=== PATIENT | female | born 1940 | race Caucasian/White ===

== ENCOUNTER 2017-06-30 10:58 | Day surgery (SDC) | payer MEDICARE ==
--- NOTE | 2017-06-22 15:56 | HP ---
PREOPERATIVE HISTORY AND PHYSICAL: DATE OF ADMISSION/SURGERY: 06/30/17 - [facility] DATE OF OFFICE VISIT/ENCOUNTER: 06/22/17 ATTENDING SURGEON: Dipti Avila MD * (DICTATED BY FREIDA MOORE) PROCEDURE: Right carpal tunnel release. JOY LOADER: Dr. Chung. CHIEF COMPLAINT: Numbness and tingling, right hand. HISTORY OF PRESENT ILLNESS: This is a 77-year-old female, who reports numbness and tingling in the median nerve distribution of her right hand. This has been ongoing since late October 2015. She thinks initially the symptom started when she was making a lot of [place] treats and using her hands a lot. She has symptoms during the day and also at night that awaken her. She has failed conservative treatment including bracing, cortisone injection, and physical therapy. She is interested in pursuing surgical intervention at this time in the form of a right carpal tunnel release. The patient has had two heart attacks in the past, one in 2013 and one in 2014, and is followed regularly by Dr. Chung. She saw Dr. Chung in April of 2017 and was stable cardiac mead and there have been no changes in her medical history or medications. Dr. Chung advises that the patient stayed on warfarin and aspirin perioperatively. PAST MEDICAL HISTORY: 1. Heart attack x2; February of 2014, December of 2014. 2. Hypertension. 3. High cholesterol. 4. History of breast cancer. PAST SURGICAL HISTORY: 1. Right mastectomy. 2. Hysterectomy. 3. Cardiac catheterization x4. CURRENT MEDICATIONS: 1. Amlodipine besylate 10 mg daily. 2. Aspirin 81 mg daily. 3. Atorvastatin calcium 40 mg daily. 4. Calcium citrate plus D3 250/200 mg units daily. 5. Colace 100 mg 3 tabs p.o. daily at night. 6. Lisinopril 40 mg daily. 7. Nitrostat 0.4 mg 1 tab sublingual p.r.n. every 5 minutes x3. 8. Senna 8.6 mg daily. 9. Toprol-XL 50 mg 1 tab q.a.m. and 1 tab q.p.m. 10. Warfarin sodium 10 mg 1 tab and Monday. 11. Warfarin sodium 7.5 mg 1 tab Monday, Monday, Monday, Monday, and Monday. ALLERGIES: BACTRIM, reaction unknown. FAMILY MEDICAL HISTORY: Heart disease. SOCIAL HISTORY: The patient is retired. She denies tobacco use and recreational drug use. She does not drink alcohol per Dr. Chung's advice. REVIEW OF SYSTEMS: General: Negative for fevers, chills, or night sweats. No known anesthesia problems. HEENT: Negative for headache, lightheadedness, or syncopal episodes. Integumentary: Negative for abrasions, lesions, or open wounds. Cardiothoracic: Positive for hypertension and history of heart attack. Negative for current chest pain, palpitations, or edema. Pulmonary: Negative for shortness of breath with exertion, chronic cough, or COPD. GI: Negative for nausea, vomiting, diarrhea, constipation, or GERD. : Negative for nocturia, urinary frequency, urgency, history of UTIs, or kidney problems. Musculoskeletal: Positive for current complaint. Negative for chronic or intermittent back pain or history of fractures. Neurologic: Negative for paresthesias, numbness, history of seizures, stroke, or epilepsy. Endocrine: Negative for diabetes or thyroid issues. Hematologic: Negative for easy bruising, anemia, excessive bleeding, or history of DVT. Infectious Disease: Negative for history of MRSA, hepatitis C, or HIV. PHYSICAL EXAMINATION GENERAL: Well-developed, well-nourished, 77-year-old female, in no acute distress. VITAL SIGNS: Height 5 feet 6 inches, weight 173 pounds. Pulse rate 68, blood pressure 140/90. HEENT: Normocephalic, atraumatic. Pupils are equal, round, and reactive to light and accommodation. Extraocular movements are intact. NECK: Supple. No palpable lymph nodes. Throat is clear. PULMONARY: Lungs are clear to auscultation bilaterally. No wheezes, rales, or rhonchi. CARDIOVASCULAR: Regular rate and rhythm. S1 and S2. No murmurs, rubs, or gallops. No edema. ABDOMEN: Positive bowel sounds, soft, nontender. NEUROLOGICAL: Alert and oriented x3. Cranial nerves II through XII are intact. MUSCULOSKELETAL: On exam of her right hand, there is visible thenar wasting noted and weakness in the right thumb with abduction. She has full motion in the thumb and the fingers and reports that sensation is intact to light touch throughout the entire hand. She has a negative Tinel's at the wrist and at the elbow and negative Phalen's test. IMPRESSION: Right carpal tunnel syndrome. PLAN: The patient is scheduled to undergo a right carpal tunnel release with Dr. Avila on 06/30/17. She will return to the office 10 to 14 days postop for followup and suture removal. She will plan on using [id number] Tylenol for postoperative pain management. She will remain on her warfarin and aspirin perioperatively per Dr. Chung. FREIDA MOORE [id number]/[facility] #: [id number] NIKUNJ
[~2017-06-30 10:58] MED LIST: Buffered Lidocaine 0.9% SYRIN* 5 ML/SYR SYRINGE INTRADERM ONE; Famotidine IV* 10 MG/ML 2 ML (20 mg) IV ONE; HYDROcodone/ACETAMIN 5-325 MG* 1 TAB PO PRN; Metoclopramide TAB* 10 MG PO ONE; Ondansetron INJ* 2 MG/ML VIAL IV PRN; fentaNYL* 50 MCG/ML 2 ML VIAL (100 MCG VIAL) IV PRN
[2017-06-30] MEDS ORDERED: Metoclopramide TAB* 10 MG ONE (11:00)
[2017-06-30] MEDS ORDERED: Famotidine IV* 10 MG/ML 2 ML (20 mg) ONE (11:01)
[2017-06-30] MEDS ORDERED: Lidocaine 2% PF * 5 ML VIAL ONE (11:36)
[2017-06-30] MEDS ORDERED: Propofol* 10 MG/ML 20 ML BTL IV PUSH ONE (11:36)
[2017-06-30] MEDS ORDERED: Ondansetron INJ* 2 MG/ML VIAL ONE (11:36)
[2017-06-30] MEDS ORDERED: fentaNYL* 50 MCG/ML 2 ML VIAL (100 MCG VIAL) ONE (11:36)
[2017-06-30] MEDS ORDERED: Ketorolac INJ* 30 MG/ML 1 ML VIAL ONE (11:36)
[2017-06-30] MEDS ORDERED: Midazolam* 1 MG/ML 5 ML VIAL (5 MG) ONE (11:36)
[2017-06-30] MEDS ORDERED: Dexamethasone IV* 4 MG/ML 1 ML (4 MG) ONE (11:36)
[2017-06-30] MEDS ORDERED: Lidocaine 1% INJ* 10 MG/ML 30 ML SDV ONE (13:07)
[2017-06-30 13:43] VITALS: BP 154/83
--- NOTE | 2017-07-01 03:02 | OP ---
DATE OF OPERATION: 06/30/17 [facility] DATE OF : 40 SURGEON: Dipti Avila MD GEOPHYSICAL PROSPECTOR: FREIDA Mitchell. ANESTHESIOLOGIST: Marc Rhodes MD ANESTHESIA: Local MAC. PRE-OP DIAGNOSIS: Right carpal tunnel syndrome. POST-OP DIAGNOSIS: Right carpal tunnel syndrome. OPERATIVE PROCEDURE: Right carpal tunnel release. ESTIMATED BLOOD LOSS: Zero. TOURNIQUET TIME: About 5 minutes. INDICATIONS FOR SURGERY: Destiny is a 77-year-old woman with numbness and tingling in the median nerve distribution of her right hand. She presents for right carpal tunnel release. DESCRIPTION OF PROCEDURE: The patient was brought to the operating room, was given a local anesthetic with 10 cc of 1% plain lidocaine. Skin of her right hand and forearm was prepped and draped in usual sterile fashion. The hand and forearm were exsanguinated and the tourniquet elevated to 250 mmHg. A longitudinal incision was made in the palm in line with the ring finger. We dissected through the subcutaneous tissue sharply with a knife and then more proximally with the scissors. The nerve was carefully dissected free from surrounding tissue. There was an area of marked compression at the mid portion of the ligament. Because the patient was on Coumadin, the Bovie was used to acquire hemostasis. The wound was irrigated with saline and then the skin edges reapproximated with 4-0 nylon suture. The wound was dressed with Xeroform , 4x4, Webril, and David wrap. The patient tolerated the procedure well, was brought to the recovery room in good condition. [id number]/[facility] #: [id number] [facility]
== END 2017-06-30 13:56 | disposition home or self-care (01) ==
LOC: OREAST 10:58
PROVIDERS: ATTEND Orthopaedic Surgery
DX: G56.01 Carpal tunnel syndrome, right upper limb (principal); I25.10 Atherosclerotic heart disease of native coronary artery without angina pectoris; I25.2 Old myocardial infarction; I10 Essential (primary) hypertension; E78.00 Pure hypercholesterolemia, unspecified; Z85.3 Personal history of malignant neoplasm of breast; Z79.01 Long term (current) use of anticoagulants
CPT/HCPCS: A9270-GY; J1100; J1885; J2001; J2250; J2405; J2704; J3010

== ENCOUNTER 2017-06-30 18:15 | Emergency (ER) | payer MEDICARE ==
--- NOTE | 2017-06-30 18:35 | ED ---
Upper Extremity Pain - HPI Summary HPI Summary: 77F presents with bleeding from her carpel tunnel incision site since 3pm today. She had surgery with dr rosales today and was discharged at 2pm. She states she keeps applying bandaids on top and it keeps bleeding through. She called the ortho office and they told her to come here. She states her pain is minimal. She is on coumadin and inr is 3.2 last checked a week ago. Her cardiology dr schmidt will not let go off coumadin. - History of Current Complaint Chief Complaint: EDExtremityUpper Stated Complaint: POST OP BLEEDING Time Seen by Provider: 06/30/17 18:23 - Allergies/Home Medications Allergies/Adverse Reactions: Allergies Allergy/AdvReac Type Severity Reaction Status Date / Time Sulfamethoxazole Allergy Unknown GI Upset Verified 06/30/17 18:16 w/Trimethoprim [From Bactrim] Home Medications: Home Medications Calcium Citrate-Vitamin D [Calcium Citrate+D3 Petite 200-250 mg-Unit] 1 tab PO DAILY 06/30/17 [History Confirmed 06/30/17] Lisinopril [Lisinopril 40 MG-] 40 mg PO DAILY 06/30/17 [History Confirmed ] Nitroglycerin TAB 0.4 MG* 0.4 mg SL Q5M PRN 06/30/17 [History Confirmed 06/30/17 ] Warfarin TAB(*) [Coumadin TAB(*)] 7.5 mg PO MOTUWEFRSA 06/30/17 [History Confirmed 06/30/17] Warfarin TAB(*) [Coumadin TAB(*)] 10 mg PO SUTH 06/30/17 [History Confirmed 03/13] amLODIPine TAB* [Norvasc 5 mg TAB*] 10 mg PO DAILY 06/30/17 [History Confirmed 06/30/17] PMH/Surg Hx/FS Hx/Imm Hx Endocrine/Hematology History: Reports: Hx Anticoagulant Therapy Denies: Hx Blood Disorders, Hx Blood Transfusions, Hx Bone Marrow Disease, Hx Diabetes, Hx Systemic Lupus Erythematosus, Hx Sickle Cell Disease, Hx Thyroid Disease, Hx Anemia, Hx Unexplained Bleeding, Other Endocrine/ Hematological Disorders Cardiovascular History: Reports: Hx Aneurysm, Hx Angina, Hx Coronary Artery Disease, Hx Embolism - possible coronary clot 01/01/15, Hx Hypercholesterolemia, Hx Hypertension - ON DAILY MEDS, Other Cardiovascular Problems/Disorders - AORTIC TEAR Denies: Hx Angioplasty, Hx Auto Implanted Cardiovert Defib, Hx Cardiac Arrest , Hx Cardiomegaly, Hx Congenital Heart Disease, Hx Congestive Heart Failure, Hx Deep Vein Thrombosis, Hx Hypotension, Hx Pacemaker/ICD, Hx Peripheral Vascular Disease, Hx Rheumatic Fever, Hx Syncope, Hx Valvular Heart Disease GI History: Denies: Hx Cirrhosis, Hx Crohn's Disease, Hx Diverticulosis, Hx Gall Bladder Disease, Hx Gastroesophageal Reflux Disease, Hx Gastrointestinal Bleed, Hx Hiatal Hernia, Hx Irritable Bowel, Hx Jaundice, Hx Obstructive Bowel, Hx Ileostomy, Hx Pyloric Stenosis, Hx Ulcer Musculoskeletal History: Reports: Hx Arthritis - STATES MILD, USES OTC MEDS OCCASSIONALLY, Hx Bursitis - left hip and right hip Denies: Hx Back Problems, Hx Congenital Bone Abnormalities, Hx Fibromyalgia, Hx Gout, Hx Orthopedic Injury, Hx Osteoporosis, Hx Scoliosis, Hx Tendonitis, Other Musculoskeletal History Sensory History: Reports: Hx Cataracts, Hx Contacts or Glasses - reading Denies: Hx Hearing Aid Opthamlomology History: Reports: Hx Cataracts, Hx Contacts or Glasses - reading - Cancer History Cancer Type, Location and Year: Right breast CA Hx Chemotherapy: No Hx Radiation Therapy: No Hx Palliative Cancer Treatment: No - Surgical History Surgery Procedure, Year, and Place: 1979 HYSTERECTOMY [facility] [place]. 1996 RIGHT BREAST CANCER, MASTECTOMY [facility] [place]. 02/2014 Cardiac Catherization-[facility] [place] x2. 12/01/14 Cardiac Caterization-[facility] [place] x2 Hx Anesthesia Reactions: No - Immunization History Date of Tetanus Vaccine: unknown Infectious Disease History: Denies: Hx Clostridium Difficile, Hx Hepatitis, Hx Human Immunodeficiency Virus (HIV), Hx of Known/Suspected MRSA, Hx Shingles, Hx Tuberculosis, Hx Known/ Suspected VRE, Hx Known/Suspected VRSA, History Other Infectious Disease, Traveled Outside the [place] in Last 30 Days - Social History Alcohol Use: None Alcohol Amount: NONE IN 4M Substance Use Type: Reports: None Smoking Status (MU): Never Smoked Tobacco Have You Smoked in the Last Year: No Review of Systems Negative: Fever Negative: Chest Pain Negative: Shortness Of Breath Positive: Other - bleeding from right wrist All Other Systems Reviewed And Are Negative: Yes Physical Exam Triage Information Reviewed: Yes Vital Signs On Initial Exam: Initial Vitals Temp Pulse Resp BP Pulse Ox 98.6 F 88 18 153/85 95 06/30/17 18:17 06/30/17 18:17 06/30/17 18:17 06/30/17 18:17 06/30/17 18:17 Vital Signs Reviewed: Yes Appearance: Positive: Well-Appearing Skin: Positive: Warm, Dry, Other - 5cm incision on right wrist that is closed with sutures, 2 areas are oozing one near where suture inserted and one in between two sutures. Head/Face: Positive: Normal Head/Face Inspection Eyes: Positive: Normal, EOMI, BEAN, Conjunctiva Clear ENT: Positive: Normal ENT inspection, Pharynx normal, TMs normal Respiratory/Lung Sounds: Positive: Clear to Auscultation, Breath Sounds Present Cardiovascular: Positive: Normal, RRR Procedures - Laceration/Wound Repair 1 Location: Other - right wrist Description: Stellate Length, Depth and Shape: 4cm laceration with sutures that is oozing Closure: Skin Adhesive Sterile Dressing Applied?: No - pressure dressing Diagnostics - Vital Signs Vital Signs Temp Pulse Resp BP Pulse Ox 06/30/17 18:17 98.6 F 88 18 153/85 95 - Laboratory Lab Statement: Any lab studies that have been ordered have been reviewed, and results considered in the medical decision making process. Course/Dx - Course Course Of Treatment: 77F presents with bleeding from her carpel tunnel incision site since 3pm today. She had surgery with dr rosales today and was discharged at 2pm. She states she keeps applying bandaids on top and it keeps bleeding through. She called the ortho office and they told her to come here. She states her pain is minimal. She is on coumadin and inr is 3.2 last checked a week ago. Her cardiology dr schmidt will not let go off coumadin. on exam has two area that appear to be oozing. discussed with dr sauceda said can place glue and place a pressure dressing which did. had patient elevate arm and checked in 30 mins and it did not appear to go through pressure dressing. d/c home and told if bleeding returns to return otherwise to give office a call on monday - Diagnoses Differential Diagnosis/HQI/PQRI: Positive: Other - bleeding post op, cellulitis Provider Diagnoses: Postoperative bleeding from incision - Physician Notifications Discussed Care of Patient With: ajay sauceda Time Discussed With Above Provider: 05:00 - apply glue and pressure dressing Discharge - Discharge Plan Condition: Good Disposition: HOME Referrals: Landen Jackson MD [Primary Care Provider] - Additional Instructions: Keep elevated Place ice on area Call ortho office on Monday Keep pressure dressing on area Return to ED if bleeds through pressure dressing
[2017-06-30 19:56] VITALS: BP 141/78
== END 2017-06-30 19:51 | disposition home or self-care (01) ==
LOC: ED 18:15
DX: L76.22 Postprocedural hemorrhage of skin and subcutaneous tissue following other procedure (principal); G56.00 Carpal tunnel syndrome, unspecified upper limb; Z79.01 Long term (current) use of anticoagulants; Z86.79 Personal history of other diseases of the circulatory system
CPT/HCPCS: 99281

== ENCOUNTER 2020-09-17 04:19 | Inpatient (IN) ==
[2020-09-17 04:51] LABS: ABS Eosinophils 0.2 10^3/ul (0-0.6); ABS Lymphocytes 0.9 10^3/ul (1.0-4.8); ABS Monocytes 0.5 10^3/ul (0-0.8); ABS Neutrophils 3.9 10^3/ul (1.5-7.7); Eosinophil % 3.7 %; Hematocrit 44 % (35-47); Hemoglobin 14.8 g/dL (12.0-16.0); Lymphocyte % 16.6 %; Mean Corpuscular HGB Conc 34 g/dL (31-36); Mean Corpuscular Hemoglobin 30 pg (27-31); Mean Corpuscular Volume 90 fL (80-97); Mean Platelet Volume 7.2 fL (7.4-10.4); Platelet Count 234 10^3/uL (150-450); Red Blood Count 4.88 10^6 /uL (3.70-4.87); Red Cell Distribution Width 16 % (10-15); White Blood Count 5.5 10^3/uL (3.5-10.8)
[2020-09-17 05:02] LABS: Albumin 4.2 g/dL (3.2-5.2); Albumin/Globulin Ratio 1.6 (1-3); BUN/Creatinine Ratio 22.4 (8-20); C Reactive Protein 6.37 mg/L (<8.01); Calcium 9.9 mg/dL (8.6-10.3); EGFR African American 77.9 (>60); EGFR Non-African American 64.4 (>60); Globulin 2.7 g/dL (2-4); Potassium 4.3 mmol/L (3.5-5.0); Total Bilirubin 0.6 mg/dL (0.2-1.0); Total Protein 6.9 g/dL (6.4-8.9)
[2020-09-17 05:05] LABS: INR 2.99 (0.82-1.09)
[2020-09-17] MEDS ORDERED: HYDROcodone/ACETAMIN 5/325 mg TAB PO PRN (06:23)
[2020-09-17] MEDS ORDERED: Gadoteridol (CONTRAST) 279.3 MG/ML 10 ML IV ONE (10:14)
[2020-09-17] MEDS ORDERED: Iohexol 300 (CONTRAST) 10 ML SDV IV ONE (10:34)
[2020-09-17] MEDS ORDERED: Lidocaine PATCH 5% PATCH ONE ×3 (11:12→21:56)
[2020-09-17] MEDS ORDERED: HYDROcodone/ACETAMIN 5/325 mg TAB ONE (11:13)
[2020-09-17] MEDS: Lidocaine PATCH 5% PATCH TRANSDERM SCH (11:15)
[2020-09-17 12:26] LABS: Urine Appearance Cloudy; Urine Bilirubin Negative (Negative); Urine Blood Negative (Negative); Urine Color Yellow; Urine Glucose Negative (Negative); Urine Ketones Negative (Negative); Urine Nitrite Negative (Negative); Urine Protein Negative (Negative); Urine Specific Gravity 1.021 (1.010-1.030); Urine Urobilinogen Negative (Negative)
[2020-09-17 12:30] LABS: Urine Bacteria Absent (Absent); Urine Red Blood Cell Trace(0-2/hpf) (Absent); Urine Squamous Epithelial Cell Present (Absent); Urine White Blood Cell Trace(0-5/hpf) (Absent)
[2020-09-17] MEDS ORDERED: Aspirin EC 81 mg TAB.EC (enteric coated) ONE (14:09)
[2020-09-17] MEDS: CALCIUM CITRATE VITAMIN D3 PO SCH (14:14)
[2020-09-17] MEDS: Aspirin EC 81 mg TAB.EC (enteric coated) PO SCH (14:16)
[2020-09-17] MEDS: Warfarin DAILY REMINDER **NOTE FOLLOW UP SCH (17:20)
[2020-09-17] MEDS ORDERED: Senna TAB 8.6 mg TAB ONE (20:40)
[2020-09-17] MEDS: Senna TAB 8.6 mg TAB PO SCH (20:50)
[2020-09-17] MEDS: Lidocaine Patch REMOVE PATCH PATCH OFF SCH (20:51)
[2020-09-17] MEDS ORDERED: Lidocaine PATCH 5% PATCH TRANSDERM ONE (20:52)
[2020-09-18] MEDS ORDERED: Morphine 2 MG/ML SYRINGE IV ONE (00:59)
[2020-09-18] MEDS ORDERED: Morphine 2 MG/ML SYRINGE ONE ×2 (01:08→11:54)
[2020-09-18 06:38] LABS: ABS Eosinophils 0.2 10^3/ul (0-0.6); ABS Lymphocytes 0.8 10^3/ul (1.0-4.8); ABS Monocytes 0.5 10^3/ul (0-0.8); ABS Neutrophils 4.1 10^3/ul (1.5-7.7); Eosinophil % 3.5 %; Hematocrit 41 % (35-47); Hemoglobin 13.6 g/dL (12.0-16.0); Lymphocyte % 14.8 %; Mean Corpuscular HGB Conc 33 g/dL (31-36); Mean Corpuscular Hemoglobin 30 pg (27-31); Mean Corpuscular Volume 91 fL (80-97); Mean Platelet Volume 7.3 fL (7.4-10.4); Platelet Count 218 10^3/uL (150-450); Red Blood Count 4.52 10^6 /uL (3.70-4.87); Red Cell Distribution Width 15 % (10-15); White Blood Count 5.7 10^3/uL (3.5-10.8)
[2020-09-18 06:48] LABS: INR 2.65 (0.82-1.09)
[2020-09-18 06:54] LABS: BUN/Creatinine Ratio 22.4 (8-20); Calcium 9.2 mg/dL (8.6-10.3); EGFR African American 102.5 (>60); EGFR Non-African American 84.7 (>60); Potassium 4.1 mmol/L (3.5-5.0)
[2020-09-18] MEDS ORDERED: Iodixanol (CONTRAST) 320 MG/ML 100 ML SDV IV ONE (09:04)
[2020-09-18] MEDS: CALCIUM CITRATE VITAMIN D3 PO SCH (09:58)
[2020-09-18] MEDS ORDERED: Aspirin EC 81 mg TAB.EC (enteric coated) ONE (10:42)
[2020-09-18] MEDS ORDERED: Lidocaine PATCH 5% PATCH ONE (10:43)
[2020-09-18] MEDS: Lidocaine PATCH 5% PATCH TRANSDERM SCH (10:49)
[2020-09-18] MEDS: Aspirin EC 81 mg TAB.EC (enteric coated) PO SCH (10:52)
[2020-09-18] MEDS: Morphine 2 MG/ML SYRINGE IV PRN (11:55)
[2020-09-18] MEDS ORDERED: Gadoteridol (CONTRAST) 279.3 MG/ML 10 ML IV ONE (15:47)
[2020-09-18] MEDS: Warfarin DAILY REMINDER **NOTE FOLLOW UP SCH (16:58)
[2020-09-18] MEDS: Lidocaine Patch REMOVE PATCH PATCH OFF SCH ×3 (19:19→21:22)
[2020-09-18] MEDS: Polyethylene Glycol 3350 17 GM PACKET PO PRN (21:19)
[2020-09-18] MEDS: Senna TAB 8.6 mg TAB PO SCH (21:21)
[2020-09-19] MEDS: Morphine 2 MG/ML SYRINGE IV PRN (02:39)
[2020-09-19] MEDS: Lidocaine PATCH 5% PATCH TRANSDERM SCH (10:17)
[2020-09-19] MEDS: Aspirin EC 81 mg TAB.EC (enteric coated) PO SCH (10:17)
[2020-09-19] MEDS: CALCIUM CITRATE VITAMIN D3 PO SCH (10:44)
[2020-09-19] MEDS: Lidocaine Patch REMOVE PATCH PATCH OFF SCH ×2 (12:31→20:53)
[2020-09-19] MEDS: Dexamethasone IV 4 MG/ML VIAL 1 ml VIAL IV SLOW PU SCH ×2 (12:51→20:56)
[2020-09-19] MEDS: Warfarin DAILY REMINDER **NOTE FOLLOW UP SCH (17:13)
[2020-09-19] MEDS: Senna TAB 8.6 mg TAB PO SCH (20:51)
[2020-09-20] MEDS: Calcium/Vitamin D TAB 250/125 TAB PO SCH (08:08)
[2020-09-20] MEDS: Aspirin EC 81 mg TAB.EC (enteric coated) PO SCH (08:10)
[2020-09-20] MEDS: Dexamethasone IV 4 MG/ML VIAL 1 ml VIAL IV SLOW PU SCH ×2 (08:10→21:51)
[2020-09-20] MEDS: Lidocaine PATCH 5% PATCH TRANSDERM SCH (08:11)
[2020-09-20] MEDS: Lidocaine Patch REMOVE PATCH PATCH OFF SCH ×2 (09:56→23:12)
[2020-09-20] MEDS: Warfarin DAILY REMINDER **NOTE FOLLOW UP SCH (16:08)
[2020-09-20] MEDS: Senna TAB 8.6 mg TAB PO SCH (21:50)
[2020-09-21 01:46] LABS: Urine Appearance Clear; Urine Bilirubin Negative (Negative); Urine Blood 2+ (Negative); Urine Color Yellow; Urine Glucose Negative (Negative); Urine Ketones Negative (Negative); Urine Nitrite Negative (Negative); Urine Protein Negative (Negative); Urine Specific Gravity 1.017 (1.010-1.030); Urine Urobilinogen Negative (Negative)
[2020-09-21 01:51] LABS: Urine Bacteria Absent (Absent); Urine Red Blood Cell 3+(>10/hpf) (Absent); Urine Squamous Epithelial Cell Present (Absent); Urine White Blood Cell Trace(0-5/hpf) (Absent)
[2020-09-21 06:51] LABS: INR 1.7 (0.82-1.09)
[2020-09-21] MEDS: Dexamethasone IV 4 MG/ML VIAL 1 ml VIAL IV SLOW PU SCH ×2 (08:22→20:50)
[2020-09-21] MEDS: Calcium/Vitamin D TAB 250/125 TAB PO SCH (08:22)
[2020-09-21] MEDS: Lidocaine PATCH 5% PATCH TRANSDERM SCH (08:22)
[2020-09-21] MEDS: Aspirin EC 81 mg TAB.EC (enteric coated) PO SCH (08:24)
[2020-09-21] MEDS: Lidocaine Patch REMOVE PATCH PATCH OFF SCH (08:46)
[2020-09-21] MEDS: Polyethylene Glycol 3350 17 GM PACKET PO PRN (11:40)
[2020-09-21] MEDS: Warfarin DAILY REMINDER **NOTE FOLLOW UP SCH (17:07)
[2020-09-21] MEDS: Senna TAB 8.6 mg TAB PO SCH (20:50)
[2020-09-21 21:59] LABS: Urine Kappa/Lambda Light Chain >1.29
[2020-09-21 22:41] LABS: Immunoglobulin A 242 mg/dL (61 - 356); Immunoglobulin G 740 mg/dL (767 - 1590); Immunoglobulin M 33 mg/dL (37 - 286)
[2020-09-22 06:39] LABS: INR 1.2 (0.82-1.09)
[2020-09-22] MEDS: Lidocaine PATCH 5% PATCH TRANSDERM SCH (08:50)
[2020-09-22] MEDS: Lidocaine Patch REMOVE PATCH PATCH OFF SCH ×3 (08:50→22:23)
[2020-09-22] MEDS: Dexamethasone IV 4 MG/ML VIAL 1 ml VIAL IV SLOW PU SCH (08:51)
[2020-09-22] MEDS: Calcium/Vitamin D TAB 250/125 TAB PO SCH (08:52)
[2020-09-22] MEDS: Aspirin EC 81 mg TAB.EC (enteric coated) PO SCH (08:54)
[2020-09-22] MEDS ORDERED: fentaNYL 100 mcg/2 ml 50 MCG/ML VIAL ONE (14:38)
[2020-09-22] MEDS ORDERED: Gelfoam 12-7 ADSORBABL SPONGE ONE (15:43)
[2020-09-22] MEDS ORDERED: Gelfoam Sponge SIZE 100 SPONGE ONE (15:43)
[2020-09-22] MEDS: Warfarin DAILY REMINDER **NOTE FOLLOW UP SCH (16:41)
[2020-09-22] MEDS: Senna TAB 8.6 mg TAB PO SCH (22:21)
[2020-09-23] MEDS: Morphine 2 MG/ML SYRINGE IV PRN (02:18)
[2020-09-23] MEDS: Aspirin EC 81 mg TAB.EC (enteric coated) PO SCH (08:32)
[2020-09-23] MEDS: Lidocaine PATCH 5% PATCH TRANSDERM SCH (08:36)
[2020-09-23] MEDS: Calcium/Vitamin D TAB 250/125 TAB PO SCH (08:38)
[2020-09-23 10:43] LABS: INR 1.16 (0.82-1.09)
[2020-09-23] MEDS: Lidocaine Patch REMOVE PATCH PATCH OFF SCH ×2 (13:21→22:33)
[2020-09-23 13:27] LABS: Albumin 2.6 g/dL (3.4-4.7); Albumin/Globulin Ratio 0.97; Gamma Globulin 0.7 g/dL (0.6-1.6); Total Protein(PEP) 5.3 g/dL (6.3 - 7.9)
[2020-09-23 16:13] LABS: Kappa Free Light Chain 2.31 mg/dL; Lambda Free Light Chain 1.44 mg/dL
[2020-09-23] MEDS: Senna TAB 8.6 mg TAB PO SCH (21:40)
[2020-09-23] MEDS: Warfarin DAILY REMINDER **NOTE FOLLOW UP SCH (21:41)
[2020-09-24] MEDS: Lidocaine PATCH 5% PATCH TRANSDERM SCH (10:36)
[2020-09-24] MEDS: Calcium/Vitamin D TAB 250/125 TAB PO SCH (10:39)
[2020-09-24] MEDS: Aspirin EC 81 mg TAB.EC (enteric coated) PO SCH (10:39)
[2020-09-24 11:05] VITALS: BP 103/66
[2020-09-24] MEDS: Lidocaine Patch REMOVE PATCH PATCH OFF SCH (11:50)
[2020-09-25 14:02] LABS: Albumin 56 %; Albumin/Globulin Ratio 1.25 %; Gamma Globulin 8 %; Total Protein(PEP) Urine 14 mg/dL
== END 2020-09-24 12:35 | disposition home or self-care (01) | DRG 478 ==
LOC: ED 04:19 → MEDTELE 04:19 → MED 09-18 00:15
PROVIDERS: ADMIT Internal Medicine; ATTEND Pediatrics

== ENCOUNTER 2020-10-15 08:12 | Inpatient (IN) ==
[2020-10-15] MEDS ORDERED: NS 0.9% 1000 ml BAG 1,000 ML IV ONE (08:28)
[2020-10-15] MEDS ORDERED: Ondansetron 4 mg VIAL 2 MG/ML 2 ml VIAL IV ONE (08:33)
[2020-10-15] MEDS ORDERED: Dexamethasone IV 4 MG/ML VIAL 1 ml VIAL IV SLOW PU ONE (08:33)
[2020-10-15 09:13] LABS: ALT 31 U/L (7-52); Albumin 3.3 g/dL (3.2-5.2); Albumin/Globulin Ratio 1.2 (1-3); Alkaline Phosphatase 102 U/L (34-104); BUN/Creatinine Ratio 40.5 (8-20); Blood Urea Nitrogen 32 mg/dL (6-24); CO2 Carbon Dioxide 28 mmol/L (22-32); Calcium 9.4 mg/dL (8.6-10.3); Chloride 102 mmol/L (101-111); EGFR African American 84.7 (>60); Globulin 2.7 g/dL (2-4); Glucose 83 mg/dL (70-100); Sodium 134 mmol/L (135-145)
[2020-10-15 09:39] LABS: Anion Gap 4 mmol/L (2-11)
[2020-10-15 10:21] LABS: ABS Lymphocytes 0.8 10^3/ul (1.0-4.8); ABS Monocytes 0.6 10^3/ul (0-0.8); ABS Neutrophils 7.1 10^3/ul (1.5-7.7); Eosinophil % 0.4 %; Hematocrit 44 % (35-47); Hemoglobin 14.8 g/dL (12.0-16.0); Lymphocyte % 9.5 %; Mean Corpuscular HGB Conc 34 g/dL (31-36); Mean Corpuscular Hemoglobin 31 pg (27-31); Mean Corpuscular Volume 91 fL (80-97); Mean Platelet Volume 7.6 fL (7.4-10.4); Nucleated Red Blood Cells % 0.1; Platelet Count 182 10^3/uL (150-450); Red Blood Count 4.82 10^6 /uL (3.70-4.87); Red Cell Distribution Width 16 % (10-15); White Blood Count 8.6 10^3/uL (3.5-10.8)
[2020-10-15 10:33] LABS: Urine Appearance Cloudy; Urine Color Yellow; Urine Specific Gravity 1.005 (1.010-1.030)
[2020-10-15 10:34] LABS: Urine Blood 2+ (Negative); Urine Ketones Negative (Negative); Urine Nitrite Negative (Negative); Urine Protein Negative (Negative); Urine Urobilinogen Negative (Negative)
[2020-10-15 10:35] LABS: Urine Bacteria 3+ (Absent); Urine Bilirubin Negative (Negative); Urine Glucose Negative (Negative); Urine Red Blood Cell 2+(6-10/hpf) (Absent); Urine White Blood Cell 1+(6-10/hpf) (Absent)
[2020-10-15 10:38] LABS: ALT 32 U/L (7-52); Albumin 3.3 g/dL (3.2-5.2); Albumin/Globulin Ratio 1.2 (1-3); Alkaline Phosphatase 89 U/L (34-104); Blood Urea Nitrogen 32 mg/dL (6-24); CO2 Carbon Dioxide 29 mmol/L (22-32); Calcium 9.5 mg/dL (8.6-10.3); Chloride 101 mmol/L (101-111); EGFR African American 73.8 (>60); Globulin 2.7 g/dL (2-4); Glucose 79 mg/dL (70-100); Sodium 134 mmol/L (135-145)
[2020-10-15 10:42] LABS: Anion Gap 4 mmol/L (2-11)
[2020-10-15 11:12] LABS: Free T4 1.07 ng/dL (0.61-1.12)
[2020-10-15 11:17] LABS: ABS Monocytes 0.8 10^3/ul (0-0.8); ABS Neutrophils 8.1 10^3/ul (1.5-7.7); Eosinophil % 0.3 %; Hematocrit 44 % (35-47); Hemoglobin 14.6 g/dL (12.0-16.0); Lymphocyte % 9.9 %; Mean Corpuscular HGB Conc 33 g/dL (31-36); Mean Corpuscular Hemoglobin 31 pg (27-31); Mean Corpuscular Volume 92 fL (80-97); Mean Platelet Volume 7.4 fL (7.4-10.4); Platelet Count 169 10^3/uL (150-450); Red Blood Count 4.75 10^6 /uL (3.70-4.87); Red Cell Distribution Width 16 % (10-15); White Blood Count 9.9 10^3/uL (3.5-10.8)
[2020-10-15 11:29] LABS: Potassium Redraw 4.7 mmol/L (3.5-5.0)
[2020-10-15] MEDS ORDERED: Gadoteridol (CONTRAST) 279.3 MG/ML 10 ML IV ONE (14:51)
[2020-10-15] MEDS ORDERED: cefTRIAXone 1 gm/50 mL NS BAG 1 GM/50 ML BAG IV ONE (15:26)
[2020-10-15] MEDS ORDERED: Ondansetron 4 mg VIAL 2 MG/ML 2 ml VIAL IV PRN (16:33)
[2020-10-15] MEDS ORDERED: Polyethylene Glycol 3350 17 GM PACKET PO PRN (16:39)
[2020-10-15] MEDS ORDERED: NS 0.9% 1000 ml BAG 1,000 ML IV SCH (16:45)
[2020-10-15 19:08] LABS: INR 2.44 (0.82-1.09)
[2020-10-15] MEDS: Senna TAB 8.6 mg TAB PO SCH (19:52)
[2020-10-15] MEDS: Dexamethasone IV 4 MG/ML VIAL 1 ml VIAL IV SLOW PU SCH (19:53)
[2020-10-16] MEDS: Dexamethasone IV 4 MG/ML VIAL 1 ml VIAL IV SLOW PU SCH ×4 (00:39→18:24)
[2020-10-16 08:15] LABS: ABS Lymphocytes 0.4 10^3/ul (1.0-4.8); ABS Monocytes 0.1 10^3/ul (0-0.8); ABS Neutrophils 6.3 10^3/ul (1.5-7.7); Hematocrit 41 % (35-47); Hemoglobin 13.6 g/dL (12.0-16.0); Lymphocyte % 5.6 %; Mean Corpuscular HGB Conc 33 g/dL (31-36); Mean Corpuscular Hemoglobin 31 pg (27-31); Mean Corpuscular Volume 92 fL (80-97); Mean Platelet Volume 7.4 fL (7.4-10.4); Platelet Count 166 10^3/uL (150-450); Red Blood Count 4.43 10^6 /uL (3.70-4.87); Red Cell Distribution Width 16 % (10-15); White Blood Count 6.8 10^3/uL (3.5-10.8)
[2020-10-16 08:30] LABS: Albumin 2.9 g/dL (3.2-5.2); Albumin/Globulin Ratio 1.3 (1-3); BUN/Creatinine Ratio 44.6 (8-20); Calcium 8.5 mg/dL (8.6-10.3); EGFR African American 91.4 (>60); EGFR Non-African American 75.5 (>60); Globulin 2.2 g/dL (2-4); Total Bilirubin 0.5 mg/dL (0.2-1.0); Total Protein 5.1 g/dL (6.4-8.9)
[2020-10-16] MEDS: Aspirin EC 81 mg TAB.EC (enteric coated) PO SCH (10:29)
[2020-10-16] MEDS: Lidocaine PATCH 5% PATCH TRANSDERM SCH (10:37)
[2020-10-16] MEDS: Morphine 2 MG/ML SYRINGE IV PRN ×2 (11:57→18:32)
[2020-10-16] MEDS: Senna TAB 8.6 mg TAB PO SCH (20:58)
[2020-10-16] MEDS: Lidocaine Patch REMOVE PATCH PATCH OFF SCH (21:00)
[2020-10-17] MEDS: Dexamethasone IV 4 MG/ML VIAL 1 ml VIAL IV SLOW PU SCH ×4 (01:22→18:04)
[2020-10-17 06:18] LABS: INR 3.92 (0.82-1.09)
[2020-10-17] MEDS: Lidocaine PATCH 5% PATCH TRANSDERM SCH (08:47)
[2020-10-17] MEDS: Aspirin EC 81 mg TAB.EC (enteric coated) PO SCH (08:48)
[2020-10-17] MEDS ORDERED: Sodium Phosphate ADULT ENEMA 133 ML BTL PR PRN (10:29)
[2020-10-17] MEDS: Polyethylene Glycol 3350 17 GM PACKET PO SCH (10:32)
[2020-10-17] MEDS: Senna TAB 8.6 mg TAB PO SCH (19:35)
[2020-10-17] MEDS: Lidocaine Patch REMOVE PATCH PATCH OFF SCH (19:36)
[2020-10-18] MEDS: Dexamethasone IV 4 MG/ML VIAL 1 ml VIAL IV SLOW PU SCH ×4 (01:09→17:45)
[2020-10-18] MEDS: Morphine 2 MG/ML SYRINGE IV PRN (09:04)
[2020-10-18] MEDS: Aspirin EC 81 mg TAB.EC (enteric coated) PO SCH (09:09)
[2020-10-18] MEDS: Polyethylene Glycol 3350 17 GM PACKET PO SCH (09:10)
[2020-10-18] MEDS: Lidocaine PATCH 5% PATCH TRANSDERM SCH (09:10)
[2020-10-18] MEDS: Senna TAB 8.6 mg TAB PO SCH ×2 (13:10→20:14)
[2020-10-18] MEDS: Lidocaine Patch REMOVE PATCH PATCH OFF SCH (20:15)
[2020-10-19] MEDS: Dexamethasone IV 4 MG/ML VIAL 1 ml VIAL IV SLOW PU SCH ×4 (00:11→17:33)
[2020-10-19 07:24] LABS: ABS Lymphocytes 0.3 10^3/ul (1.0-4.8); ABS Monocytes 0.3 10^3/ul (0-0.8); ABS Neutrophils 7.3 10^3/ul (1.5-7.7); Hematocrit 41 % (35-47); Hemoglobin 13.9 g/dL (12.0-16.0); Lymphocyte % 3.7 %; Mean Corpuscular HGB Conc 34 g/dL (31-36); Mean Corpuscular Hemoglobin 30 pg (27-31); Mean Corpuscular Volume 90 fL (80-97); Mean Platelet Volume 7.2 fL (7.4-10.4); Platelet Count 174 10^3/uL (150-450); Red Blood Count 4.57 10^6 /uL (3.70-4.87); Red Cell Distribution Width 16 % (10-15); White Blood Count 7.9 10^3/uL (3.5-10.8)
[2020-10-19 07:42] LABS: Albumin 2.8 g/dL (3.2-5.2); Albumin/Globulin Ratio 1.3 (1-3); BUN/Creatinine Ratio 49.3 (8-20); Calcium 8.4 mg/dL (8.6-10.3); EGFR African American 102.5 (>60); EGFR Non-African American 84.7 (>60); Globulin 2.1 g/dL (2-4); INR 2.78 (0.82-1.09); Potassium 4.8 mmol/L (3.5-5.0); Total Bilirubin 0.5 mg/dL (0.2-1.0); Total Protein 4.9 g/dL (6.4-8.9)
[2020-10-19] MEDS: Polyethylene Glycol 3350 17 GM PACKET PO SCH (09:16)
[2020-10-19] MEDS: Lidocaine PATCH 5% PATCH TRANSDERM SCH (09:16)
[2020-10-19] MEDS: Senna TAB 8.6 mg TAB PO SCH ×2 (09:18→20:16)
[2020-10-19] MEDS: Aspirin EC 81 mg TAB.EC (enteric coated) PO SCH (09:18)
[2020-10-19] MEDS: Lidocaine Patch REMOVE PATCH PATCH OFF SCH (20:18)
[2020-10-20] MEDS: Dexamethasone IV 4 MG/ML VIAL 1 ml VIAL IV SLOW PU SCH ×4 (01:15→17:28)
[2020-10-20] MEDS: Polyethylene Glycol 3350 17 GM PACKET PO SCH (09:30)
[2020-10-20] MEDS: Lidocaine PATCH 5% PATCH TRANSDERM SCH (09:32)
[2020-10-20] MEDS: Aspirin EC 81 mg TAB.EC (enteric coated) PO SCH (09:34)
[2020-10-20] MEDS: Senna TAB 8.6 mg TAB PO SCH ×2 (09:36→19:34)
[2020-10-20] MEDS: Morphine 2 MG/ML SYRINGE IV PRN (09:37)
[2020-10-20] MEDS: Lidocaine Patch REMOVE PATCH PATCH OFF SCH (19:37)
[2020-10-21] MEDS: Dexamethasone IV 4 MG/ML VIAL 1 ml VIAL IV SLOW PU SCH ×4 (00:16→14:14)
[2020-10-21 07:45] LABS: INR 3.59 (0.82-1.09)
[2020-10-21] MEDS: Lidocaine PATCH 5% PATCH TRANSDERM SCH (09:31)
[2020-10-21] MEDS: Polyethylene Glycol 3350 17 GM PACKET PO SCH (09:31)
[2020-10-21] MEDS: Senna TAB 8.6 mg TAB PO SCH (09:34)
[2020-10-21] MEDS: Aspirin EC 81 mg TAB.EC (enteric coated) PO SCH (09:34)
[2020-10-21] MEDS: Morphine 2 MG/ML SYRINGE IV PRN (09:53)
[2020-10-21 16:47] VITALS: BP 100/53
== END 2020-10-21 14:36 | disposition home or self-care (01) | DRG 543 ==
LOC: ED 08:12 → MEDTELE 16:30 → MED 10-16 01:09 → MEDTELE 10-20 02:20
PROVIDERS: ADMIT Pediatrics; ATTEND Internal Medicine Hematology & Oncology

== ENCOUNTER 2020-10-21 16:24 | Inpatient (IN) ==
[2020-10-21] MEDS ORDERED: Al Hydrox/Mg Hydrox/Simet LIQ 30 ML UDC PO PRN (17:27)
[2020-10-21] MEDS ORDERED: Warfarin per PHARMACY **NOTE FOLLOW UP SCH (18:00)
[2020-10-21] MEDS ORDERED: Warfarin - No Order Today **NOTE FOLLOW UP ONE (18:00)
[2020-10-21] MEDS: Senna TAB 8.6 mg TAB PO SCH (21:29)
[2020-10-21] MEDS: Lidocaine Patch REMOVE PATCH PATCH OFF SCH (21:33)
[2020-10-21] MEDS ORDERED: Heparin 5000 UNITS/ML 1 mL VIAL SUBCUT SCH (22:00)
[2020-10-22 06:35] LABS: Hematocrit 44 % (35-47); Hemoglobin 14.8 g/dL (12.0-16.0); Mean Corpuscular HGB Conc 34 g/dL (31-36); Mean Corpuscular Hemoglobin 31 pg (27-31); Mean Corpuscular Volume 92 fL (80-97); Mean Platelet Volume 7.1 fL (7.4-10.4); Platelet Count 159 10^3/uL (150-450); Red Blood Count 4.79 10^6 /uL (3.70-4.87); Red Cell Distribution Width 16 % (10-15); White Blood Count 9.1 10^3/uL (3.5-10.8)
[2020-10-22 06:38] LABS: INR 3.68 (0.82-1.09)
[2020-10-22 06:51] LABS: BUN/Creatinine Ratio 55.2 (8-20); Calcium 8.4 mg/dL (8.6-10.3); EGFR African American 102.5 (>60); EGFR Non-African American 84.7 (>60)
[2020-10-22 06:52] LABS: Potassium 5.1 mmol/L (3.5-5.0)
[2020-10-22 07:19] LABS: ABS Lymphocytes 0.2 10^3/ul (1.0-4.8); ABS Monocytes 0.5 10^3/ul (0-0.8); ABS Neutrophils 8.4 10^3/ul (1.5-7.7); Lymphocyte % 1.9 %; Nucleated Red Blood Cells % 0.2
[2020-10-22] MEDS: Lidocaine PATCH 5% PATCH TRANSDERM SCH ×2 (10:19→11:44)
[2020-10-22] MEDS: Aspirin EC 81 mg TAB.EC (enteric coated) PO SCH (10:23)
[2020-10-22] MEDS ORDERED: Warfarin - No Order Today **NOTE FOLLOW UP ONE (17:00)
[2020-10-22] MEDS: Warfarin DAILY REMINDER **NOTE FOLLOW UP SCH (17:44)
[2020-10-22] MEDS: Senna TAB 8.6 mg TAB PO SCH (19:49)
[2020-10-22] MEDS: Lidocaine Patch REMOVE PATCH PATCH OFF SCH (19:50)
[2020-10-22] MEDS ORDERED: Lidocaine Patch REMOVE PATCH PATCH OFF SCH (21:00)
[2020-10-23 05:59] LABS: INR 1.96 (0.82-1.09)
[2020-10-23] MEDS: Lidocaine PATCH 5% PATCH TRANSDERM SCH ×2 (08:42)
[2020-10-23] MEDS: Aspirin EC 81 mg TAB.EC (enteric coated) PO SCH (08:43)
[2020-10-23] MEDS: Warfarin DAILY REMINDER **NOTE FOLLOW UP SCH (18:19)
[2020-10-23] MEDS: Senna TAB 8.6 mg TAB PO SCH (21:06)
[2020-10-23] MEDS: Lidocaine Patch REMOVE PATCH PATCH OFF SCH (21:15)
[2020-10-24 06:46] LABS: INR 1.36 (0.82-1.09)
[2020-10-24 06:55] LABS: BUN/Creatinine Ratio 52.7 (8-20); Calcium 7.8 mg/dL (8.6-10.3); EGFR African American 128.7 (>60); EGFR Non-African American 106.3 (>60); Potassium 4.7 mmol/L (3.5-5.0)
[2020-10-24] MEDS: Lidocaine PATCH 5% PATCH TRANSDERM SCH ×2 (09:24)
[2020-10-24] MEDS: Aspirin EC 81 mg TAB.EC (enteric coated) PO SCH (09:25)
[2020-10-24] MEDS: Enoxaparin 60 MG/0.6 ML SYR SUBCUT SCH ×2 (11:14→20:42)
[2020-10-24] MEDS: Warfarin DAILY REMINDER **NOTE FOLLOW UP SCH (18:03)
[2020-10-24] MEDS: Senna TAB 8.6 mg TAB PO SCH (20:42)
[2020-10-24] MEDS: Lidocaine Patch REMOVE PATCH PATCH OFF SCH (21:44)
[2020-10-25 06:19] LABS: INR 1.96 (0.82-1.09)
[2020-10-25] MEDS: Lidocaine PATCH 5% PATCH TRANSDERM SCH ×2 (09:10)
[2020-10-25] MEDS: Aspirin EC 81 mg TAB.EC (enteric coated) PO SCH (09:10)
[2020-10-25] MEDS: Enoxaparin 60 MG/0.6 ML SYR SUBCUT SCH ×2 (09:14→21:01)
[2020-10-25] MEDS: Warfarin DAILY REMINDER **NOTE FOLLOW UP SCH (16:49)
[2020-10-25] MEDS: Polyethylene Glycol 3350 17 GM PACKET PO PRN (20:55)
[2020-10-25] MEDS: Senna TAB 8.6 mg TAB PO SCH (20:57)
[2020-10-25 21:33] LABS: Hematocrit 44 % (35-47); Mean Corpuscular HGB Conc 34 g/dL (31-36); Mean Corpuscular Hemoglobin 31 pg (27-31); Mean Corpuscular Volume 91 fL (80-97); Mean Platelet Volume 7.4 fL (7.4-10.4); Platelet Count 151 10^3/uL (150-450); Red Blood Count 4.88 10^6 /uL (3.70-4.87); Red Cell Distribution Width 16 % (10-15); White Blood Count 9.3 10^3/uL (3.5-10.8)
[2020-10-25] MEDS: Lidocaine Patch REMOVE PATCH PATCH OFF SCH (21:44)
[2020-10-25 21:50] LABS: Albumin 2.6 g/dL (3.2-5.2); Albumin/Globulin Ratio 1.4 (1-3); BUN/Creatinine Ratio 55.2 (8-20); Globulin 1.9 g/dL (2-4); Magnesium 1.9 mg/dL (1.9-2.7); Potassium 4.4 mmol/L (3.5-5.0); Total Bilirubin 0.5 mg/dL (0.2-1.0); Total Protein 4.5 g/dL (6.4-8.9)
[2020-10-25] MEDS ORDERED: NS 0.9% 500 ml BAG 500 ML IV ONE (22:05)
[2020-10-25 22:06] LABS: ABS Eosinophils 0.1 10^3/ul (0-0.6); ABS Lymphocytes 0.2 10^3/ul (1.0-4.8); ABS Monocytes 0.6 10^3/ul (0-0.8); ABS Neutrophils 8.3 10^3/ul (1.5-7.7); Nucleated Red Blood Cells % 0.1
[2020-10-25 22:28] LABS: TSH Ultra Thyroid Stim Horm 0.59 mcIU/mL (0.34-5.60)
[2020-10-26 07:51] LABS: Hematocrit 44 % (35-47); Mean Corpuscular HGB Conc 34 g/dL (31-36); Mean Corpuscular Hemoglobin 31 pg (27-31); Mean Corpuscular Volume 91 fL (80-97); Mean Platelet Volume 7.1 fL (7.4-10.4); Platelet Count 128 10^3/uL (150-450); Red Blood Count 4.85 10^6 /uL (3.70-4.87); Red Cell Distribution Width 16 % (10-15); White Blood Count 8.8 10^3/uL (3.5-10.8)
[2020-10-26 08:02] LABS: INR 2.99 (0.82-1.09)
[2020-10-26 08:09] LABS: BUN/Creatinine Ratio 55.8 (8-20); Calcium 7.8 mg/dL (8.6-10.3); EGFR African American 137.3 (>60); EGFR Non-African American 113.5 (>60); Magnesium 1.8 mg/dL (1.9-2.7); Potassium 4.7 mmol/L (3.5-5.0)
[2020-10-26] MEDS: Aspirin EC 81 mg TAB.EC (enteric coated) PO SCH (08:27)
[2020-10-26] MEDS: Lidocaine PATCH 5% PATCH TRANSDERM SCH ×2 (08:28)
[2020-10-26] MEDS: Enoxaparin 60 MG/0.6 ML SYR SUBCUT SCH (08:29)
[2020-10-26 08:57] LABS: ABS Eosinophils 0.1 10^3/ul (0-0.6); ABS Lymphocytes 0.3 10^3/ul (1.0-4.8); ABS Monocytes 0.6 10^3/ul (0-0.8); ABS Neutrophils 7.7 10^3/ul (1.5-7.7); Eosinophil % 1.5 %; Lymphocyte % 3.7 %; Nucleated Red Blood Cells % 0.1
[2020-10-26] MEDS ORDERED: Magnesium Sulfate 2 gm BAG 2 GM/50 ML BAG IVPB ONE (09:12)
[2020-10-26] MEDS ORDERED: Sodium Phosphate ADULT ENEMA 133 ML BTL PR ONE (10:00)
[2020-10-26 13:43] LABS: Urine Appearance Cloudy; Urine Bilirubin Negative (Negative); Urine Blood 2+ (Negative); Urine Color Amber; Urine Glucose Negative (Negative); Urine Ketones Negative (Negative); Urine Nitrite Negative (Negative); Urine Protein Negative (Negative); Urine Specific Gravity 1.034 (1.010-1.030); Urine Urobilinogen Negative (Negative)
[2020-10-26 13:50] LABS: Urine Bacteria Absent (Absent); Urine Red Blood Cell 3+(>10/hpf) (Absent); Urine Squamous Epithelial Cell Present (Absent); Urine White Blood Cell 2+(11-20/hpf) (Absent)
[2020-10-26] MEDS ORDERED: Magnesium Hydroxide LIQ 30 ML UDC PO PRN (16:31)
[2020-10-26] MEDS: Warfarin DAILY REMINDER **NOTE FOLLOW UP SCH (17:32)
[2020-10-26] MEDS ORDERED: Senna TAB 8.6 mg TAB PO SCH (21:00)
[2020-10-26] MEDS: Lidocaine Patch REMOVE PATCH PATCH OFF SCH (21:09)
[2020-10-27 07:10] LABS: INR 4.26 (0.82-1.09)
[2020-10-27 07:37] LABS: BUN/Creatinine Ratio 57.4 (8-20); Calcium 7.7 mg/dL (8.6-10.3); EGFR African American 131.4 (>60); EGFR Non-African American 108.6 (>60); Potassium 4.8 mmol/L (3.5-5.0)
[2020-10-27] MEDS: Aspirin EC 81 mg TAB.EC (enteric coated) PO SCH (10:42)
[2020-10-27] MEDS: Polyethylene Glycol 3350 17 GM PACKET PO PRN (10:47)
[2020-10-27] MEDS: Lidocaine PATCH 5% PATCH TRANSDERM SCH ×2 (10:49)
[2020-10-27 16:14] VITALS: BP 105/70
[2020-10-27] MEDS ORDERED: Warfarin - No Order Today **NOTE FOLLOW UP ONE (17:00)
[2020-10-27] MEDS: Warfarin DAILY REMINDER **NOTE FOLLOW UP SCH (20:35)
== END 2020-10-27 17:30 | DRG 948 ==
LOC: ED 16:24 → MED 17:27
PROVIDERS: ADMIT Internal Medicine; ATTEND Pediatrics

== ENCOUNTER 2020-11-13 10:15 | Inpatient (IN) ==
[2020-11-13] MEDS ORDERED: Piperacillin/Tazobac PREMIX(*) 3.375 GM in Premix IV 50 ML IVPB ONE (10:17)
[2020-11-13] MEDS ORDERED: NS 0.9% 1000 ml BAG 1,000 ML IV ONE ×2 (10:17→12:44)
[2020-11-13] MEDS ORDERED: NS 0.9% 1000 ml BAG 1,000 ML IV.FLUID IV ONE (10:40)
[2020-11-13 10:51] LABS: Hematocrit 46 % (35-47); Hemoglobin 15.8 g/dL (12.0-16.0); Mean Corpuscular HGB Conc 35 g/dL (31-36); Mean Corpuscular Hemoglobin 31 pg (27-31); Mean Corpuscular Volume 90 fL (80-97); Mean Platelet Volume 7.8 fL (7.4-10.4); Platelet Count 113 10^3/uL (150-450); Red Blood Count 5.07 10^6 /uL (3.70-4.87); Red Cell Distribution Width 17 % (10-15); White Blood Count 8.4 10^3/uL (3.5-10.8)
[2020-11-13 10:55] LABS: Urine Appearance Turbid; Urine Bilirubin Negative (Negative); Urine Blood 1+ (Negative); Urine Color Yellow; Urine Glucose Negative (Negative); Urine Ketones Negative (Negative); Urine Nitrite Negative (Negative); Urine Protein 2+(100 mg/dL) (Negative); Urine Specific Gravity 1.021 (1.010-1.030); Urine Urobilinogen Negative (Negative)
[2020-11-13 10:59] LABS: INR 0.99 (0.82-1.09)
[2020-11-13] MEDS ORDERED: Piperacillin/Tazobac ADVAN 3.375 GM in NS 0.9% 100 ml BAG 100 ML IV ONE (11:00)
[2020-11-13 11:06] LABS: Urine Bacteria Absent (Absent); Urine Red Blood Cell Absent (Absent); Urine White Blood Cell 2+(11-20/hpf) (Absent)
[2020-11-13 11:14] LABS: Albumin 2.7 g/dL (3.2-5.2); Albumin/Globulin Ratio 1.2 (1-3); BUN/Creatinine Ratio 27.1 (8-20); C Reactive Protein 57.62 mg/L (<8.01); Calcium 8.7 mg/dL (8.6-10.3); EGFR African American 77.9 (>60); EGFR Non-African American 64.4 (>60); Globulin 2.3 g/dL (2-4); Total Bilirubin 0.8 mg/dL (0.2-1.0)
[2020-11-13 11:26] LABS: ABS Lymphocytes 0.6 10^3/ul (1.0-4.8); ABS Monocytes 0.3 10^3/ul (0-0.8); ABS Neutrophils 7.5 10^3/ul (1.5-7.7); Lymphocyte % 6.7 %; Nucleated Red Blood Cells % 0.4
[2020-11-13 12:32] LABS: Erythrocyte Sed Rate 1 mm/Hr (0-29)
[2020-11-13] MEDS ORDERED: Ondansetron 4 mg VIAL 2 MG/ML 2 ml VIAL IV PRN (14:46)
[2020-11-13] MEDS ORDERED: Zosyn per Pharmacy NOTE FOLLOW UP SCH (15:00)
[2020-11-13] MEDS ORDERED: NS 0.9% 1000 ml BAG 1,000 ML IV SCH (15:00)
[2020-11-13] MEDS: Enoxaparin 80 MG/0.8 ML SYR SUBCUT SCH (17:43)
[2020-11-13] MEDS: oxyCODONE SR 10 mg TAB PO SCH (17:45)
[2020-11-13] MEDS ORDERED: ZOSYN 3.375 GM x ONE DOSE over 30 miuntes IV (19:00)
[2020-11-13] MEDS: Senna TAB 8.6 mg TAB PO SCH (21:00)
[2020-11-13] MEDS: CMCS: Diclofenac 1% GEL (NF) 100 GM TUBE TOPICAL SCH (21:33)
[2020-11-13] MEDS: Lidocaine Patch REMOVE PATCH PATCH OFF SCH (21:44)
[2020-11-13] MEDS: [UNRECOGNIZED DRUG - OTHER] TOPICAL SCH (21:45)
[2020-11-14] MEDS: oxyCODONE SR 10 mg TAB PO SCH ×2 (03:45→14:09)
[2020-11-14] MEDS: ZOSYN 3.375 GM Q8H per EXTENDED INFUSION IV SCH ×2 (03:46→09:40)
[2020-11-14] MEDS: Enoxaparin 80 MG/0.8 ML SYR SUBCUT SCH ×2 (03:46→14:06)
[2020-11-14 07:37] LABS: Calcium 7.6 mg/dL (8.6-10.3); Potassium 4.7 mmol/L (3.5-5.0); Total Bilirubin 0.7 mg/dL (0.2-1.0)
[2020-11-14 07:43] LABS: Albumin/Globulin Ratio 1.1 (1-3); BUN/Creatinine Ratio 45.1 (8-20); EGFR African American 140.4 (>60); Globulin 1.8 g/dL (2-4); Total Protein 3.8 g/dL (6.4-8.9)
[2020-11-14 08:18] LABS: Hematocrit 38 % (35-47); Hemoglobin 12.5 g/dL (12.0-16.0); Mean Corpuscular HGB Conc 33 g/dL (31-36); Mean Corpuscular Hemoglobin 31 pg (27-31); Mean Corpuscular Volume 93 fL (80-97); Red Blood Count 4.06 10^6 /uL (3.70-4.87); Red Cell Distribution Width 17 % (10-15); White Blood Count 8.1 10^3/uL (3.5-10.8)
[2020-11-14 08:39] LABS: ABS Lymphocytes 0.6 10^3/ul (1.0-4.8); ABS Monocytes 0.2 10^3/ul (0-0.8); ABS Neutrophils 7.3 10^3/ul (1.5-7.7); Lymphocyte % 7.2 %; Mean Platelet Volume 7.9 fL (7.4-10.4); Nucleated Red Blood Cells % 0.2; Platelet Count 74 10^3/uL (150-450)
[2020-11-14] MEDS: Aspirin EC 81 mg TAB.EC (enteric coated) PO SCH (09:39)
[2020-11-14] MEDS: CMCS: Diclofenac 1% GEL (NF) 100 GM TUBE TOPICAL SCH ×2 (09:40→21:10)
[2020-11-14] MEDS: Lidocaine PATCH 5% PATCH TRANSDERM SCH (09:41)
[2020-11-14] MEDS: [UNRECOGNIZED DRUG - OTHER] TOPICAL SCH ×2 (09:43→20:59)
[2020-11-14] MEDS ORDERED: NS 0.9% 1000 ml BAG 1,000 ML IV SCH (11:15)
[2020-11-14] MEDS ORDERED: NS 0.9% 500 ml BAG 500 ML IV ONE (17:45)
[2020-11-14] MEDS: Warfarin DAILY REMINDER **NOTE FOLLOW UP SCH (18:11)
[2020-11-14] MEDS: Senna TAB 8.6 mg TAB PO SCH (21:08)
[2020-11-14] MEDS: Lidocaine Patch REMOVE PATCH PATCH OFF SCH (21:21)
[2020-11-15] MEDS: Enoxaparin 80 MG/0.8 ML SYR SUBCUT SCH ×2 (03:26→14:24)
[2020-11-15] MEDS: oxyCODONE SR 10 mg TAB PO SCH ×2 (03:28→14:21)
[2020-11-15 06:38] LABS: ABS Lymphocytes 0.6 10^3/ul (1.0-4.8); ABS Monocytes 0.2 10^3/ul (0-0.8); ABS Neutrophils 7.8 10^3/ul (1.5-7.7); Hematocrit 38 % (35-47); Hemoglobin 12.6 g/dL (12.0-16.0); Lymphocyte % 6.6 %; Mean Corpuscular HGB Conc 34 g/dL (31-36); Mean Corpuscular Hemoglobin 31 pg (27-31); Mean Corpuscular Volume 92 fL (80-97); Mean Platelet Volume 7.9 fL (7.4-10.4); Nucleated Red Blood Cells % 0.1; Platelet Count 86 10^3/uL (150-450); Red Blood Count 4.09 10^6 /uL (3.70-4.87); Red Cell Distribution Width 17 % (10-15); White Blood Count 8.5 10^3/uL (3.5-10.8)
[2020-11-15 06:43] LABS: INR 1.05 (0.82-1.09)
[2020-11-15] MEDS: CMCS: Diclofenac 1% GEL (NF) 100 GM TUBE TOPICAL SCH ×2 (09:40→20:28)
[2020-11-15] MEDS: Aspirin EC 81 mg TAB.EC (enteric coated) PO SCH (09:41)
[2020-11-15] MEDS: Lidocaine PATCH 5% PATCH TRANSDERM SCH (09:43)
[2020-11-15] MEDS: [UNRECOGNIZED DRUG - OTHER] TOPICAL SCH ×2 (09:47→20:45)
[2020-11-15] MEDS ORDERED: Polyethylene Glycol 3350 17 GM PACKET PO PRN (09:51)
[2020-11-15] MEDS ORDERED: Sodium Phosphate ADULT ENEMA 133 ML BTL PR ONE (10:00)
[2020-11-15 10:24] LABS: Magnesium 2.2 mg/dL (1.9-2.7)
[2020-11-15 15:45] LABS: BUN/Creatinine Ratio 40.8 (8-20); EGFR Non-African American 121.5 (>60); Potassium 4.3 mmol/L (3.5-5.0)
[2020-11-15] MEDS: Warfarin DAILY REMINDER **NOTE FOLLOW UP SCH (17:41)
[2020-11-15] MEDS: Senna TAB 8.6 mg TAB PO SCH (20:29)
[2020-11-15] MEDS: Lidocaine Patch REMOVE PATCH PATCH OFF SCH (20:45)
[2020-11-16] MEDS: Enoxaparin 80 MG/0.8 ML SYR SUBCUT SCH ×2 (03:28→14:10)
[2020-11-16] MEDS: oxyCODONE SR 10 mg TAB PO SCH ×2 (03:28→14:02)
[2020-11-16 05:42] LABS: INR 1.08 (0.82-1.09)
[2020-11-16 05:51] LABS: ABS Lymphocytes 0.3 10^3/ul (1.0-4.8); ABS Monocytes 0.2 10^3/ul (0-0.8); ABS Neutrophils 5.2 10^3/ul (1.5-7.7); Eosinophil % 0.1 %; Hematocrit 33 % (35-47); Lymphocyte % 6.1 %; Mean Corpuscular HGB Conc 33 g/dL (31-36); Mean Corpuscular Hemoglobin 31 pg (27-31); Mean Corpuscular Volume 91 fL (80-97); Platelet Count 100 10^3/uL (150-450); Red Blood Count 3.62 10^6 /uL (3.70-4.87); Red Cell Distribution Width 17 % (10-15); White Blood Count 5.7 10^3/uL (3.5-10.8)
[2020-11-16 05:55] LABS: BUN/Creatinine Ratio 43.9 (8-20); Calcium 7.7 mg/dL (8.6-10.3); EGFR African American 180.6 (>60); EGFR Non-African American 149.3 (>60); Potassium 4.2 mmol/L (3.5-5.0)
[2020-11-16] MEDS: [UNRECOGNIZED DRUG - OTHER] TOPICAL SCH ×2 (08:51→20:51)
[2020-11-16] MEDS: Lidocaine PATCH 5% PATCH TRANSDERM SCH (08:53)
[2020-11-16] MEDS: CMCS: Diclofenac 1% GEL (NF) 100 GM TUBE TOPICAL SCH ×2 (08:55→20:54)
[2020-11-16] MEDS: Aspirin EC 81 mg TAB.EC (enteric coated) PO SCH (08:56)
[2020-11-16 09:12] LABS: BUN/Creatinine Ratio 41.5 (8-20); Calcium 8.2 mg/dL (8.6-10.3); EGFR African American 180.6 (>60); EGFR Non-African American 149.3 (>60); Potassium 4.4 mmol/L (3.5-5.0)
[2020-11-16] MEDS ORDERED: Sodium Phosphate ADULT ENEMA 133 ML BTL PR ONE ×2 (13:04→18:10)
[2020-11-16] MEDS: Furosemide 40 mg/4 ml IV VIAL IV SCH (13:59)
[2020-11-16] MEDS: Benzocaine (DENTAL) 10% TOP.GEL TOPICAL SCH ×2 (16:46→20:54)
[2020-11-16] MEDS: Warfarin DAILY REMINDER **NOTE FOLLOW UP SCH (16:46)
[2020-11-16] MEDS: Senna TAB 8.6 mg TAB PO SCH (20:53)
[2020-11-16] MEDS: Lactulose 30 ml UDC PO PRN (20:53)
[2020-11-16] MEDS: Lidocaine Patch REMOVE PATCH PATCH OFF SCH (21:08)
[2020-11-17] MEDS: Enoxaparin 80 MG/0.8 ML SYR SUBCUT SCH ×2 (03:27→13:58)
[2020-11-17] MEDS: oxyCODONE SR 10 mg TAB PO SCH ×2 (03:27→13:57)
[2020-11-17 06:17] LABS: ABS Lymphocytes 0.5 10^3/ul (1.0-4.8); ABS Monocytes 0.2 10^3/ul (0-0.8); ABS Neutrophils 4.7 10^3/ul (1.5-7.7); Eosinophil % 0.5 %; Hematocrit 35 % (35-47); Hemoglobin 11.5 g/dL (12.0-16.0); Lymphocyte % 8.7 %; Mean Corpuscular HGB Conc 33 g/dL (31-36); Mean Corpuscular Hemoglobin 31 pg (27-31); Mean Corpuscular Volume 92 fL (80-97); Nucleated Red Blood Cells % 0.1; Platelet Count 112 10^3/uL (150-450); Red Blood Count 3.77 10^6 /uL (3.70-4.87); Red Cell Distribution Width 17 % (10-15); White Blood Count 5.5 10^3/uL (3.5-10.8)
[2020-11-17 06:25] LABS: Albumin 1.6 g/dL (3.2-5.2); CO2 Carbon Dioxide 18 mmol/L (22-32); Calcium 7.3 mg/dL (8.6-10.3); Chloride 106 mmol/L (101-111); Sodium 132 mmol/L (135-145)
[2020-11-17 06:30] LABS: ALT 47 U/L (7-52); Albumin/Globulin Ratio 0.7 (1-3); Alkaline Phosphatase 89 U/L (34-104); Blood Urea Nitrogen 16 mg/dL (6-24); EGFR African American 185.8 (>60); EGFR Non-African American 153.6 (>60); Globulin 2.2 g/dL (2-4); Glucose 102 mg/dL (70-100); Total Protein 3.8 g/dL (6.4-8.9)
[2020-11-17 06:35] LABS: Anion Gap 8 mmol/L (2-11)
[2020-11-17 06:45] LABS: INR 1.16 (0.82-1.09)
[2020-11-17] MEDS: Aspirin EC 81 mg TAB.EC (enteric coated) PO SCH (07:59)
[2020-11-17] MEDS: Lidocaine PATCH 5% PATCH TRANSDERM SCH (08:00)
[2020-11-17] MEDS: Senna TAB 8.6 mg TAB PO SCH ×2 (08:00→22:15)
[2020-11-17] MEDS: [UNRECOGNIZED DRUG - OTHER] TOPICAL SCH ×2 (08:01→22:14)
[2020-11-17] MEDS: Furosemide 40 mg/4 ml IV VIAL IV SCH (08:01)
[2020-11-17] MEDS: Benzocaine (DENTAL) 10% TOP.GEL TOPICAL SCH ×3 (08:02→22:12)
[2020-11-17] MEDS: CMCS: Diclofenac 1% GEL (NF) 100 GM TUBE TOPICAL SCH ×2 (08:03→22:14)
[2020-11-17 11:37] LABS: Potassium Redraw 3.3 mmol/L (3.5-5.0)
[2020-11-17] MEDS: Warfarin DAILY REMINDER **NOTE FOLLOW UP SCH (17:05)
[2020-11-17] MEDS: Lidocaine Patch REMOVE PATCH PATCH OFF SCH (22:15)
[2020-11-17] MEDS: GuaiFENesin DM 100 mg/10 mg in 5 ML UDC PO PRN (23:09)
[2020-11-18] MEDS: oxyCODONE SR 10 mg TAB PO SCH ×2 (03:28→14:21)
[2020-11-18] MEDS: Enoxaparin 80 MG/0.8 ML SYR SUBCUT SCH ×2 (03:28→14:21)
[2020-11-18 06:17] LABS: INR 1.36 (0.82-1.09)
[2020-11-18 06:25] LABS: BUN/Creatinine Ratio 35.1 (8-20); Calcium 7.4 mg/dL (8.6-10.3); EGFR African American 203.3 (>60); Potassium 3.4 mmol/L (3.5-5.0)
[2020-11-18] MEDS: Benzocaine (DENTAL) 10% TOP.GEL TOPICAL SCH ×3 (09:22→20:49)
[2020-11-18] MEDS: Furosemide 40 mg/4 ml IV VIAL IV SCH (09:23)
[2020-11-18] MEDS: Aspirin EC 81 mg TAB.EC (enteric coated) PO SCH (09:23)
[2020-11-18] MEDS: Lidocaine PATCH 5% PATCH TRANSDERM SCH (09:25)
[2020-11-18] MEDS: CMCS: Diclofenac 1% GEL (NF) 100 GM TUBE TOPICAL SCH ×2 (09:32→20:50)
[2020-11-18] MEDS: [UNRECOGNIZED DRUG - OTHER] TOPICAL SCH ×2 (09:33→20:41)
[2020-11-18] MEDS: Senna TAB 8.6 mg TAB PO SCH ×2 (09:33→20:50)
[2020-11-18] MEDS ORDERED: Warfarin per PHARMACY **NOTE FOLLOW UP SCH (11:00)
[2020-11-18] MEDS ORDERED: Furosemide 20 mg/2 ml IV VIAL IV SLOW PU ONE (11:38)
[2020-11-18] MEDS: Potassium Chlor 10 meq TAB PO SCH ×2 (12:39→18:22)
[2020-11-18 15:33] LABS: Urine Appearance Clear; Urine Bilirubin Negative (Negative); Urine Blood Negative (Negative); Urine Color Yellow; Urine Glucose Negative (Negative); Urine Ketones Negative (Negative); Urine Nitrite Negative (Negative); Urine Protein Negative (Negative); Urine Specific Gravity 1.006 (1.010-1.030); Urine Urobilinogen Negative (Negative)
[2020-11-18 15:43] LABS: Urine Bacteria Absent (Absent); Urine Red Blood Cell 1+(3-5/hpf) (Absent); Urine White Blood Cell 2+(11-20/hpf) (Absent)
[2020-11-18] MEDS: Lidocaine Patch REMOVE PATCH PATCH OFF SCH (20:50)
[2020-11-18 21:00] LABS: Magnesium 1.5 mg/dL (1.9-2.7); Potassium 3.5 mmol/L (3.5-5.0)
[2020-11-18] MEDS: GuaiFENesin DM 100 mg/10 mg in 5 ML UDC PO PRN (23:30)
[2020-11-19] MEDS: oxyCODONE SR 10 mg TAB PO SCH ×2 (03:07→16:06)
[2020-11-19] MEDS: Enoxaparin 80 MG/0.8 ML SYR SUBCUT SCH ×2 (03:07→16:07)
[2020-11-19 06:42] LABS: INR 1.74 (0.82-1.09)
[2020-11-19 06:50] LABS: Albumin 2.1 g/dL (3.2-5.2); Calcium 7.8 mg/dL (8.6-10.3); EGFR African American 191.3 (>60); EGFR Non-African American 158.1 (>60); Globulin 2.1 g/dL (2-4); Potassium 3.5 mmol/L (3.5-5.0); Total Bilirubin 0.5 mg/dL (0.2-1.0); Total Protein 4.2 g/dL (6.4-8.9)
[2020-11-19] MEDS ORDERED: Magnesium Sulfate 2 gm BAG 2 GM/50 ML BAG IVPB ONE (07:20)
[2020-11-19] MEDS: Furosemide 40 mg/4 ml IV VIAL IV SCH (09:00)
[2020-11-19] MEDS: Lidocaine PATCH 5% PATCH TRANSDERM SCH (09:00)
[2020-11-19] MEDS: Aspirin EC 81 mg TAB.EC (enteric coated) PO SCH (09:01)
[2020-11-19] MEDS: Potassium Chlor 10 meq TAB PO SCH ×2 (09:01→17:00)
[2020-11-19] MEDS: CMCS: Diclofenac 1% GEL (NF) 100 GM TUBE TOPICAL SCH ×2 (09:01→21:56)
[2020-11-19] MEDS: Senna TAB 8.6 mg TAB PO SCH ×2 (09:01→20:09)
[2020-11-19] MEDS: [UNRECOGNIZED DRUG - OTHER] TOPICAL SCH ×2 (09:02→20:06)
[2020-11-19] MEDS: Benzocaine (DENTAL) 10% TOP.GEL TOPICAL SCH ×3 (09:03→20:06)
[2020-11-19] MEDS: Magic MouthWash2-BEN/MAAL/LIDO/NYST 240 ML BTL (alt formulation) SWISH SWAL SCH ×5 (10:16→22:06)
[2020-11-19] MEDS: Fluconazole 200 MG IVPREMIX 200 MG/100 ML BAG IVPB SCH (12:53)
[2020-11-19] MEDS ORDERED: Iodixanol (CONTRAST) 320 MG/ML 100 ML SDV IV ONE ×2 (15:59→16:30)
[2020-11-19] MEDS ORDERED: ZOSYN 3.375 GM x ONE DOSE over 30 miuntes IV (16:00)
[2020-11-19] MEDS ORDERED: Zosyn per Pharmacy NOTE FOLLOW UP PRN (16:03)
[2020-11-19] MEDS ORDERED: NS 0.9% 1,000 ML IV SCH (16:15)
[2020-11-19 16:38] LABS: C Reactive Protein 105.88 mg/L (<8.01)
[2020-11-19 19:25] LABS: BUN/Creatinine Ratio 33.3 (8-20); Calcium 7.7 mg/dL (8.6-10.3); EGFR African American 131.4 (>60); EGFR Non-African American 108.6 (>60); Magnesium 1.9 mg/dL (1.9-2.7); Potassium 3.4 mmol/L (3.5-5.0)
[2020-11-19] MEDS: Lidocaine Patch REMOVE PATCH PATCH OFF SCH (20:09)
[2020-11-19] MEDS: ZOSYN 3.375 GM Q8H per EXTENDED INFUSION IV SCH (20:10)
[2020-11-19] MEDS: KCL 20 MEQ/100 ML IVPREMIX 20 MEQ/100 ML BAG IV SCH (21:51)
[2020-11-19] MEDS: GuaiFENesin DM 100 mg/10 mg in 5 ML UDC PO PRN (21:52)
[2020-11-19 22:00] LABS: TSH Ultra Thyroid Stim Horm 1.54 mcIU/mL (0.34-5.60)
[2020-11-20] MEDS: KCL 20 MEQ/100 ML IVPREMIX 20 MEQ/100 ML BAG IV SCH (00:10)
[2020-11-20] MEDS: oxyCODONE SR 10 mg TAB PO SCH ×2 (02:50→14:44)
[2020-11-20] MEDS: Enoxaparin 80 MG/0.8 ML SYR SUBCUT SCH (02:51)
[2020-11-20] MEDS: ZOSYN 3.375 GM Q8H per EXTENDED INFUSION IV SCH ×3 (05:07→22:02)
[2020-11-20 05:45] LABS: ABS Lymphocytes 0.5 10^3/ul (1.0-4.8); ABS Monocytes 0.1 10^3/ul (0-0.8); ABS Neutrophils 4.9 10^3/ul (1.5-7.7); Eosinophil % 0.1 %; Hematocrit 31 % (35-47); Hemoglobin 10.5 g/dL (12.0-16.0); Lymphocyte % 9.1 %; Mean Corpuscular HGB Conc 34 g/dL (31-36); Mean Corpuscular Hemoglobin 30 pg (27-31); Mean Corpuscular Volume 90 fL (80-97); Mean Platelet Volume 7.6 fL (7.4-10.4); Nucleated Red Blood Cells % 0.1; Platelet Count 171 10^3/uL (150-450); Red Blood Count 3.45 10^6 /uL (3.70-4.87); Red Cell Distribution Width 17 % (10-15); White Blood Count 5.6 10^3/uL (3.5-10.8)
[2020-11-20 05:51] LABS: INR 2.35 (0.82-1.09)
[2020-11-20 06:13] LABS: Albumin 1.9 g/dL (3.2-5.2); Albumin/Globulin Ratio 0.9 (1-3); BUN/Creatinine Ratio 44.7 (8-20); Calcium 7.6 mg/dL (8.6-10.3); EGFR African American 197.2 (>60); EGFR Non-African American 162.9 (>60); Globulin 2.2 g/dL (2-4); Magnesium 1.8 mg/dL (1.9-2.7); Potassium 3.9 mmol/L (3.5-5.0); Total Bilirubin 0.4 mg/dL (0.2-1.0); Total Protein 4.1 g/dL (6.4-8.9)
[2020-11-20] MEDS: Lidocaine PATCH 5% PATCH TRANSDERM SCH (08:23)
[2020-11-20] MEDS: Senna TAB 8.6 mg TAB PO SCH ×2 (08:24→22:01)
[2020-11-20] MEDS: Aspirin EC 81 mg TAB.EC (enteric coated) PO SCH (08:24)
[2020-11-20] MEDS: Furosemide 40 mg/4 ml IV VIAL IV SCH (08:25)
[2020-11-20] MEDS: [UNRECOGNIZED DRUG - OTHER] TOPICAL SCH ×2 (08:25→22:12)
[2020-11-20] MEDS: Magic MouthWash2-BEN/MAAL/LIDO/NYST 240 ML BTL (alt formulation) SWISH SWAL SCH ×4 (08:25→22:13)
[2020-11-20] MEDS: CMCS: Diclofenac 1% GEL (NF) 100 GM TUBE TOPICAL SCH ×2 (08:25→22:12)
[2020-11-20] MEDS: Potassium Chlor 10 meq TAB PO SCH ×2 (08:25→17:48)
[2020-11-20] MEDS: Benzocaine (DENTAL) 10% TOP.GEL TOPICAL SCH ×3 (08:25→20:02)
[2020-11-20] MEDS: Fluconazole 200 MG IVPREMIX 200 MG/100 ML BAG IVPB SCH (13:03)
[2020-11-20] MEDS: Warfarin DAILY REMINDER **NOTE FOLLOW UP SCH (17:52)
[2020-11-20] MEDS: Lidocaine Patch REMOVE PATCH PATCH OFF SCH (22:13)
[2020-11-21] MEDS: oxyCODONE SR 10 mg TAB PO SCH ×2 (03:37→14:38)
[2020-11-21] MEDS: ZOSYN 3.375 GM Q8H per EXTENDED INFUSION IV SCH (05:29)
[2020-11-21] MEDS: Aspirin EC 81 mg TAB.EC (enteric coated) PO SCH (08:23)
[2020-11-21] MEDS: Potassium Chlor 10 meq TAB PO SCH (08:23)
[2020-11-21] MEDS: Senna TAB 8.6 mg TAB PO SCH ×2 (08:23→20:39)
[2020-11-21] MEDS: Lidocaine PATCH 5% PATCH TRANSDERM SCH (08:23)
[2020-11-21] MEDS: Furosemide 40 mg/4 ml IV VIAL IV SCH (08:23)
[2020-11-21] MEDS: Benzocaine (DENTAL) 10% TOP.GEL TOPICAL SCH ×3 (08:24→20:40)
[2020-11-21] MEDS: Magic MouthWash2-BEN/MAAL/LIDO/NYST 240 ML BTL (alt formulation) SWISH SWAL SCH ×4 (08:24→20:51)
[2020-11-21] MEDS: [UNRECOGNIZED DRUG - OTHER] TOPICAL SCH (08:24)
[2020-11-21] MEDS: CMCS: Diclofenac 1% GEL (NF) 100 GM TUBE TOPICAL SCH ×2 (08:24→20:39)
[2020-11-21 11:36] LABS: INR 2.85 (0.82-1.09)
[2020-11-21] MEDS: Fluconazole 200 MG IVPREMIX 200 MG/100 ML BAG IVPB SCH (13:24)
[2020-11-21] MEDS: Warfarin DAILY REMINDER **NOTE FOLLOW UP SCH (17:54)
[2020-11-21] MEDS: Lidocaine Patch REMOVE PATCH PATCH OFF SCH (20:51)
[2020-11-22] MEDS: oxyCODONE SR 10 mg TAB PO SCH ×2 (02:55→14:44)
[2020-11-22 07:32] LABS: INR 3.69 (0.82-1.09)
[2020-11-22] MEDS ORDERED: Warfarin - No Order Today **NOTE FOLLOW UP ONE (09:00)
[2020-11-22] MEDS: Aspirin EC 81 mg TAB.EC (enteric coated) PO SCH (10:08)
[2020-11-22] MEDS: Senna TAB 8.6 mg TAB PO SCH ×2 (10:09→21:18)
[2020-11-22] MEDS: Lidocaine PATCH 5% PATCH TRANSDERM SCH (10:09)
[2020-11-22] MEDS: Benzocaine (DENTAL) 10% TOP.GEL TOPICAL SCH ×3 (10:10→21:17)
[2020-11-22] MEDS: Magic MouthWash2-BEN/MAAL/LIDO/NYST 240 ML BTL (alt formulation) SWISH SWAL SCH ×4 (10:17→21:19)
[2020-11-22] MEDS: CMCS: Diclofenac 1% GEL (NF) 100 GM TUBE TOPICAL SCH ×2 (10:20→21:27)
[2020-11-22] MEDS: Furosemide 40 mg/4 ml IV VIAL IV SCH (10:37)
[2020-11-22] MEDS: Warfarin DAILY REMINDER **NOTE FOLLOW UP SCH (18:18)
[2020-11-22] MEDS: Lidocaine Patch REMOVE PATCH PATCH OFF SCH (21:19)
[2020-11-23] MEDS: oxyCODONE SR 10 mg TAB PO SCH ×2 (03:07→14:00)
[2020-11-23] MEDS: Senna TAB 8.6 mg TAB PO SCH ×2 (11:04→20:37)
[2020-11-23] MEDS: Aspirin EC 81 mg TAB.EC (enteric coated) PO SCH (11:04)
[2020-11-23] MEDS: Lidocaine PATCH 5% PATCH TRANSDERM SCH (11:07)
[2020-11-23] MEDS: Furosemide 40 mg/4 ml IV VIAL IV SCH (11:27)
[2020-11-23] MEDS: CMCS: Diclofenac 1% GEL (NF) 100 GM TUBE TOPICAL SCH ×2 (11:35→20:41)
[2020-11-23] MEDS: Benzocaine (DENTAL) 10% TOP.GEL TOPICAL SCH ×3 (11:35→20:41)
[2020-11-23] MEDS: Magic MouthWash2-BEN/MAAL/LIDO/NYST 240 ML BTL (alt formulation) SWISH SWAL SCH ×5 (11:36→20:39)
[2020-11-23] MEDS: Lactulose 30 ml UDC PO PRN (11:47)
[2020-11-23] MEDS ORDERED: Furosemide 40 mg/4 ml IV VIAL ONE (12:05)
[2020-11-23] MEDS ORDERED: Furosemide 20 mg/2 ml IV VIAL ONE (12:07)
[2020-11-23 12:18] LABS: INR 3.26 (0.82-1.09)
[2020-11-23] MEDS ORDERED: Furosemide 20 mg/2 ml IV VIAL IV ONE (14:00)
[2020-11-23] MEDS: Warfarin DAILY REMINDER **NOTE FOLLOW UP SCH (16:42)
[2020-11-23] MEDS: Lidocaine Patch REMOVE PATCH PATCH OFF SCH (20:56)
[2020-11-24] MEDS ORDERED: Benzocaine/Menthol LOZ PO PRN (01:16)
[2020-11-24] MEDS: oxyCODONE SR 10 mg TAB PO SCH ×2 (02:01→14:23)
[2020-11-24 07:12] LABS: Hematocrit 31 % (35-47); Hemoglobin 10.6 g/dL (12.0-16.0); Mean Platelet Volume 7.5 fL (7.4-10.4); Platelet Count 241 10^3/uL (150-450)
[2020-11-24 07:22] LABS: INR 3.82 (0.82-1.09)
[2020-11-24] MEDS: Benzocaine (DENTAL) 10% TOP.GEL TOPICAL SCH ×2 (09:21→14:07)
[2020-11-24] MEDS: Aspirin EC 81 mg TAB.EC (enteric coated) PO SCH (09:21)
[2020-11-24] MEDS: Lidocaine PATCH 5% PATCH TRANSDERM SCH (09:22)
[2020-11-24] MEDS: Senna TAB 8.6 mg TAB PO SCH (09:23)
[2020-11-24] MEDS: Magic MouthWash2-BEN/MAAL/LIDO/NYST 240 ML BTL (alt formulation) SWISH SWAL SCH ×3 (09:23→16:28)
[2020-11-24] MEDS: Furosemide 20 mg/2 ml IV VIAL IV SCH (09:24)
[2020-11-24] MEDS: CMCS: Diclofenac 1% GEL (NF) 100 GM TUBE TOPICAL SCH ×2 (09:27→21:14)
[2020-11-24] MEDS ORDERED: Warfarin - No Order Today **NOTE FOLLOW UP SCH (11:00)
[2020-11-24] MEDS: Lidocaine Patch REMOVE PATCH PATCH OFF SCH (21:14)
[2020-11-25 05:56] LABS: INR 3.43 (0.82-1.09)
[2020-11-25] MEDS: Furosemide 20 mg/2 ml IV VIAL IV SCH (09:43)
[2020-11-25] MEDS: CMCS: Diclofenac 1% GEL (NF) 100 GM TUBE TOPICAL SCH (09:44)
[2020-11-25] MEDS: Lidocaine PATCH 5% PATCH TRANSDERM SCH (09:44)
[2020-11-25 14:00] VITALS: BP 98/65
== END 2020-11-25 18:35 | disposition hospice, inpatient (51) | DRG 871 ==
LOC: ED 10:15 → MEDTELE 13:52
PROVIDERS: ADMIT Student in an Organized Health Care Education/Training Program; ATTEND Internal Medicine Hematology & Oncology